=== PATIENT | female | born 1935 | race Caucasian/White ===

== ENCOUNTER 2024-12-26 18:56 | Inpatient (IN) | payer MEDICARE, BC ==
[~2024-12-26] VITALS: Ht 162.6 cm; Wt 51.7 kg
[2024-12-26] MEDS ORDERED: ONDANSETRON HCL/PF 4 MG/2 ML VIAL ONE (19:38)
[2024-12-26] MEDS ORDERED: FAMOTIDINE/PF INJ 20 MG/2 ML VIAL IV ONE (19:38)
[2024-12-26] MEDS ORDERED: LORAZEPAM INJ 2 MG/ML VIAL IV ONE (20:00)
[2024-12-26] MEDS ORDERED: LORAZEPAM INJ 2 MG/ML VIAL ONE (20:01)
[2024-12-26] MEDS: LORAZEPAM INJ 2 MG/ML VIAL IM ONE (20:12)
[2024-12-26] MEDS: FAMOTIDINE/PF INJ 20 MG/2 ML VIAL IV ONE (20:35)
[2024-12-26] MEDS: ONDANSETRON HCL/PF 4 MG/2 ML VIAL IVP ONE (20:35)
[2024-12-26] MEDS: IV NS 0.9% 1,000 ML BAG IV ONE (20:35)
[2024-12-26 20:58] LABS: PLATELET COUNT (AUTO) 331 K/uL (150-450); RED BLOOD CELL COUNT(AUTO) 4.60 MIL/uL (4.0-5.2); RED CELL DISTRIBUTION WIDTH 16.3 % (11.5-15.0); WHITE BLOOD COUNT (AUTO) 11.8 K/uL (4.3-11.0)
[2024-12-26 21:06] LABS: CALCIUM, SERUM 9.8 mg/dL (8.5-10.1); CREATININE 0.9 mg/dL (0.6-1.3); SODIUM SERUM 140.0 mmol/L (136-145); UREA NITROGEN, BLOOD 21.0 mg/dL (7-18)
[2024-12-26 21:12] LABS: ASPARTATE AMINOTRANSFERASE 52.0 U/L (15-37); TOTAL PROTEIN, SERUM 7.4 g/dL (6.4-8.2)
[2024-12-26 22:12] LABS: APPEARANCE,URINE SLIGHTLY CLOUDY (CLEAR); BLOOD, URINE 3+ Ery/uL (NEGATIVE); LEUKOCYTE ESTERASE ,URINE 1+ (NEGATIVE); NITRITE, URINE NEGATIVE (NEGATIVE); UGLUCOSE NEGATIVE (NEGATIVE)
[2024-12-26 22:18] LABS: ADD URINE CULTURE YES
[2024-12-26] MEDS ORDERED: ONDANSETRON HCL/PF 4 MG/2 ML VIAL IVP PRN (22:30)
[2024-12-26] MEDS ORDERED: MAG HYDROX/AL HYDROX/SIMETH 30 ML UDC PO PRN (22:30)
[2024-12-26] MEDS ORDERED: MAGNESIUM HYDROXIDE 30 ML UDC PO PRN (22:30)
[2024-12-26 22:45] VITALS: BP 130/74; TEMP 98.7; O2SAT 94
[2024-12-26] MEDS: IV NS 0.9% 1,000 ML IV PRN (23:05)
[2024-12-26] MEDS: CEFTRIAXONE 1 G in IV D5W 50 ML IV SCH (23:05)
[2024-12-26] MEDS: HEPARIN SODIUM, PORCINE 5000 UNITS/1 ML VIAL SQ SCH (23:09)
[2024-12-26] MEDS: CEFTRIAXONE 1GM BAG (ER ONLY) 50 ML IV ONE (23:27)
[2024-12-27 04:00] VITALS: BP 121/71; TEMP 98.7; O2SAT 94
[2024-12-27 08:00] VITALS: TEMP 97.9; O2SAT 95
[2024-12-27] MEDS ORDERED: SOTA120T PO (08:01)
[2024-12-27] MEDS ORDERED: WARF-58 PO (08:01)
[2024-12-27] MEDS ORDERED: MULT-1119 PO (08:01)
[2024-12-27] MEDS ORDERED: DIGO125T PO (08:01)
[2024-12-27] MEDS ORDERED: SIMV5TAB59 PO (08:01)
[2024-12-27] MEDS ORDERED: ESCI5TAB PO (08:01)
[2024-12-27] MEDS: PANTOPRAZOLE 40 MG VIAL IV SCH (08:01)
[2024-12-27 08:10] LABS: PLATELET COUNT (AUTO) 279 K/uL (150-450); RED BLOOD CELL COUNT(AUTO) 4.11 MIL/uL (4.0-5.2); RED CELL DISTRIBUTION WIDTH 16.3 % (11.5-15.0); WHITE BLOOD COUNT (AUTO) 9.6 K/uL (4.3-11.0)
[2024-12-27 08:17] LABS: ASPARTATE AMINOTRANSFERASE 76.0 U/L (15-37); CALCIUM, SERUM 8.7 mg/dL (8.5-10.1); CREATININE 0.9 mg/dL (0.6-1.3); PHOSPHORUS 3.2 mg/dL (2.5-4.9); SODIUM SERUM 142.0 mmol/L (136-145); TOTAL PROTEIN, SERUM 6.6 g/dL (6.4-8.2); UREA NITROGEN, BLOOD 23.0 mg/dL (7-18)
[2024-12-27] MEDS ORDERED: ESCITALOPRAM OXALATE (10 MG) 10 MG TABLET PO SCH (09:00)
[2024-12-27] MEDS: DIGOXIN 0.125 MG TABLET PO SCH (11:00)
[2024-12-27] MEDS: SIMVASTATIN 10 MG TABLET PO SCH (11:08)
[2024-12-27 12:00] VITALS: TEMP 97; O2SAT 94
[2024-12-27 12:00] LABS: INR 2.42 (0.91-1.10)
[2024-12-27] MEDS: SOTALOL AF 80 MG TABLET PO SCH (15:39)
[2024-12-27] MEDS: SOTALOL AF 80 MG TABLET ONE (15:44)
[2024-12-27] MEDS: WARFARIN SODIUM 5 MG TABLET ONE (15:44)
[2024-12-27] MEDS: WARFARIN SODIUM 5 MG TABLET PO SCH (15:45)
[2024-12-27 17:42] LABS: LDL 65.0 mg/dL (0-99)
[2024-12-27 20:00] VITALS: BP 150/83; TEMP 97.5; O2SAT 94
[2024-12-28 04:00] VITALS: BP 130/91; TEMP 97.6; O2SAT 95
[2024-12-28] MEDS: ACETAMINOPHEN 325 MG TABLET PO PRN (04:49)
[2024-12-28 07:30] VITALS: BP 147/91; TEMP 97.5; O2SAT 94
[2024-12-28 07:45] LABS: CALCIUM, SERUM 8.2 mg/dL (8.5-10.1); CREATININE 0.8 mg/dL (0.6-1.3); PHOSPHORUS 2.1 mg/dL (2.5-4.9); SODIUM SERUM 145.0 mmol/L (136-145); UREA NITROGEN, BLOOD 23.0 mg/dL (7-18)
[2024-12-28 08:00] VITALS: BP 147/91; TEMP 97.5; O2SAT 94
[2024-12-28 08:06] LABS: PLATELET COUNT (AUTO) 212 K/uL (150-450); RED BLOOD CELL COUNT(AUTO) 3.64 MIL/uL (4.0-5.2); RED CELL DISTRIBUTION WIDTH 16.7 % (11.5-15.0); WHITE BLOOD COUNT (AUTO) 6.0 K/uL (4.3-11.0)
[2024-12-28] MEDS: MULTIVITAMINS,THERAGRAN 1 UDTAB TABLET PO SCH (09:21)
[2024-12-28] MEDS: PANTOPRAZOLE 40 MG TABLET.DR PO SCH (09:21)
[2024-12-28] MEDS: POTASSIUM CHLORIDE 20 MEQ POWDER PACKET PO SCH (10:30)
[2024-12-28] MEDS: POTASSIUM CL. PREMIX PERIPHER. 50 ML IV SCH (12:40)
[2024-12-28 16:00] VITALS: BP 165/88; TEMP 97.1; O2SAT 96
[2024-12-28 20:00] VITALS: BP 163/76; TEMP 97.3; O2SAT 97
[2024-12-28] MEDS: Sodium Phosphate 15 MMOL in IV NS 0.9% 245 ML IV SCH (20:54)
[2024-12-29 04:00] VITALS: BP 130/91; TEMP 97.5; O2SAT 97
[2024-12-29 08:00] VITALS: BP 149/100; TEMP 97.5; O2SAT 94
[2024-12-29 10:07] LABS: FOLIC ACID > 20.0 ng/mL (>3.0)
[2024-12-29 10:56] LABS: CALCIUM, SERUM 8.4 mg/dL (8.5-10.1); CREATININE 0.8 mg/dL (0.6-1.3); PHOSPHORUS 2.7 mg/dL (2.5-4.9); SODIUM SERUM 141.0 mmol/L (136-145); UREA NITROGEN, BLOOD 17.0 mg/dL (7-18)
[2024-12-29] MEDS ORDERED: CEFT1FRO2 IV (12:30)
[2024-12-29] MEDS ORDERED: PANT40TA49 PO (12:30)
[2024-12-29] MEDS ORDERED: SIMV10TA98 PO (12:30)
[2024-12-29] MEDS ORDERED: SOTA80TA6 PO (12:30)
[2024-12-29] MEDS ORDERED: MULT-24 PO (12:30)
[2024-12-29] MEDS ORDERED: LIDO30AD10 TP (12:30)
[2024-12-29] MEDS ORDERED: WARF5TAB8 PO (12:30)
[2024-12-29] MEDS ORDERED: DIGO125T PO (12:30)
[2024-12-29] MEDS ORDERED: LIDOCAINE 5% (PATCH) 1 EA PATCH TP SCH (13:00)
[2024-12-29] MEDS: LIDOCAINE 5% (PATCH) 1 EA PATCH TP SCH (13:12)
[2024-12-29] MEDS: ESCITALOPRAM OXALATE (10 MG) 10 MG TABLET PO SCH (14:21)
[2024-12-29 16:00] VITALS: BP 153/101; TEMP 97.5; O2SAT 94
[2024-12-29 17:15] VITALS: BP 140/72
== END 2024-12-29 20:41 | DRG 640 ==
LOC: ER 19:13 → MEDSG1 21:53
PROVIDERS: ADMIT Nurse Practitioner Family; ATTEND Nurse Practitioner Acute Care
DX: E86.0 Dehydration (principal); G93.41 Metabolic encephalopathy; N39.0 Urinary tract infection, site not specified; F01.54 Vascular dementia, unspecified severity, with anxiety; R62.7 Adult failure to thrive; I25.10 Atherosclerotic heart disease of native coronary artery without angina pectoris; Z20.822 Contact with and (suspected) exposure to COVID-19; I10 Essential (primary) hypertension; F41.9 Anxiety disorder, unspecified; F32.A Depression, unspecified; B96.89 Other specified bacterial agents as the cause of diseases classified elsewhere; R53.1 Weakness; R73.9 Hyperglycemia, unspecified; Z95.0 Presence of cardiac pacemaker; I48.91 Unspecified atrial fibrillation; G25.81 Restless legs syndrome; G89.29 Other chronic pain; N20.0 Calculus of kidney; R73.03 Prediabetes
CPT/HCPCS: 36415; 70450-TC; 71045-TC; 80048-TC; 80061-TC; 80076-TC; 81001; 82607-TC; 83690-TC; 83735-TC; 83921; 84100-TC; 84425; 84443-TC; 85025-TC; 85610-TC; 87081-TC; 87086-TC; 87186-TC; 92526; 92611; 97116-TC; 97530-TC; A4223; A9563; G0378; J0696; J1308; J1644; J2060; J2405; J3480; J7030; J7050; J7060